=== PATIENT | female | born 1985 | race Caucasian/White ===

== ENCOUNTER 2019-07-27 05:59 | Inpatient (IN) ==
[2019-07-20 15:05] LABS: URINE SOURCE CLEAN CATCH
[2019-07-20 15:12] LABS: BILIRUBIN URINE NEGATIVE (NEGATIVE); BLOOD URINE NEGATIVE (NEGATIVE); COLOR YELLOW; GLUCOSE URINE NEGATIVE (NEGATIVE); KETONE URINE TRACE mg/dL (NEGATIVE); LEUKOCYTES URINE NEGATIVE (NEGATIVE); NITRITE URINE NEGATIVE (NEGATIVE); PROTEIN URINE TRACE mg/dL (NEGATIVE); SP GRAVITY URINE 1.033; TURBIDITY URINE CLEAR (CLEAR); UR EPITHELIAL CELLS <10 /HPF (<10); URINE BACTERIA NEGATIVE /HPF; URINE RBC <10 /HPF (<10); URINE WBC <10 /HPF (<10); UROBILINOGEN URINE 2 mg/dL (NORMAL)
[2019-07-27] MEDS ORDERED: LR 1,000 ML ONE ×2 (06:15→15:01)
[2019-07-27] MEDS ORDERED: REGLAN ONE (06:15)
[2019-07-27] MEDS ORDERED: KEFZOL 1 GM/D5W 2 GM/100 ML IVPB ONE (06:15)
[2019-07-27] MEDS ORDERED: TRANSDERM-SCOP ONE (06:15)
[2019-07-27] MEDS ORDERED: PEPCID ONE (06:15)
[2019-07-27] MEDS ORDERED: NS 250 ML ONE (06:17)
[2019-07-27] MEDS ORDERED: NS 2,000 ML ONE (06:17)
[2019-07-27] MEDS ORDERED: EXPAREL 1.3% ONE (06:18)
[2019-07-27] MEDS ORDERED: BACITRACIN ONE (06:18)
[2019-07-27] MEDS ORDERED: VERSED ONE (06:21)
[2019-07-27] MEDS ORDERED: FENTANYL ONE (06:21)
[2019-07-27] MEDS ORDERED: DIPRIVAN 1% ONE (06:21)
[2019-07-27] MEDS ORDERED: ALBUMIN 25% ONE (06:24)
[2019-07-27] MEDS ORDERED: XYLOCAINE-MPF 2% ONE (08:13)
[2019-07-27] MEDS ORDERED: DECADRON ONE (08:13)
[2019-07-27] MEDS ORDERED: LUBRIFRESH PM OPH OINTMENT ONE (08:13)
[2019-07-27] MEDS ORDERED: QUELICIN (DOSE) ONE (08:13)
[2019-07-27] MEDS ORDERED: ZOFRAN ONE (08:13)
[2019-07-27 09:16] LABS: URINE SOURCE CATH
[2019-07-27] MEDS ORDERED: EPHEDRINE ONE (09:16)
[2019-07-27 09:22] LABS: BILIRUBIN URINE NEGATIVE (NEGATIVE); BLOOD URINE NEGATIVE (NEGATIVE); COLOR STRAW; GLUCOSE URINE NEGATIVE (NEGATIVE); KETONE URINE NEGATIVE (NEGATIVE); LEUKOCYTES URINE NEGATIVE (NEGATIVE); NITRITE URINE NEGATIVE (NEGATIVE); PH URINE 5.5; PROTEIN URINE NEGATIVE (NEGATIVE); SP GRAVITY URINE 1.014; TURBIDITY URINE CLEAR (CLEAR); UROBILINOGEN URINE NORMAL (NORMAL)
[2019-07-27 09:28] LABS: UR EPITHELIAL CELLS <10 /HPF (<10); URINE BACTERIA NEGATIVE /HPF; URINE RBC <10 /HPF (<10); URINE WBC <10 /HPF (<10)
[2019-07-27] MEDS ORDERED: KEFZOL 1 GM/D5W 1 GM/50 ML IVPB ONE (09:59)
[2019-07-27] MEDS ORDERED: DILAUDID ONE (11:50)
[2019-07-27] MEDS ORDERED: OFIRMEV 1000 MG/ISOTONIC SOLN 1,000 MG/100 ML BOTTLE ONE (11:58)
[2019-07-27] MEDS ORDERED: ZEMURON ONE (11:58)
[2019-07-27] MEDS ORDERED: NEOSTIGMINE ONE (12:29)
[2019-07-27] MEDS ORDERED: ROBINUL ONE (12:29)
[2019-07-27] MEDS ORDERED: MORPHINE PCA ONE (15:01)
[2019-07-27] MEDS ORDERED: TYLENOL PO PRN (15:11)
[2019-07-27] MEDS ORDERED: NARCAN IV PRN (15:15)
[2019-07-27] MEDS ORDERED: BENADRYL IV PRN (15:15)
[2019-07-27] MEDS ORDERED: MORPHINE PCA IV PRN (15:15)
[2019-07-27] MEDS ORDERED: SODIUM CHLORIDE 0.9% INJ PRN (15:15)
[2019-07-27] MEDS ORDERED: PHENERGAN IV PRN (15:15)
[2019-07-27] MEDS ORDERED: MORPHINE ONE (15:45)
[2019-07-27] MEDS: LR 1,000 ML IV SCH ×2 (16:15→23:45)
--- NOTE | 2019-07-27 18:37 | OPERATIVE NOTE ---
PROCEDURE DATE: 07/27/2019 PROCEDURE: Bilateral breast reconstruction with submuscular tissue dormitory keeper. SURGEON: Dr. Tejeda. 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 [address] placement tissue dormitory keeper and 99639-92 placement tissue dormitory keeper on the other side. INDICATION FOR PROCEDURE: This patient is a 33-year-old white female who had a left breast cancer. She had neoadjuvant chemotherapy to shrink the cancer and now she is ready for her mastectomies to be done by Dr. Ty Muller. On the left side, she also will have a complete lymph node dissection. She was seen in the office for informed consent for me for the reconstruction on 07/20/2019 and at that point, she understood that she would have submuscular tissue expanders placed after the mastectomies. She understands this is the first stage of a planned 2-stage procedure. She understands there be a period of time where she does not have optimal breast shape and will do her permanent reconstruction in about 4 months. She understands exact size and shape cannot be guaranteed. We cannot make breasts as big as she had prior to the mastectomies. She understands risks include infection, blood loss, blood clots in legs, heart problems, lung problems, allergic reactions, or blood and serum collections in the operative sites might require drainage. She understands that these tissue expanders have magnets in them so during the time that she has the tissue expanders in place she cannot have an MRI scan. She understands exact size and shape cannot be guaranteed. She knows her skin incisions be across her chest on both breasts. She knows where her scars will be. DESCRIPTION OF PROCEDURE: The patient brought to the operating room after she was marked in outpatient surgery for the mastectomies by me in the sitting position. She went to the operating room, had general anesthesia, and then she was prepped and draped and the song were reviewed with Dr. Muller. Dr. Muller then proceeded to do his surgery and then he was done, the reconstruction started. Back in the operating room, submuscular pockets were dissected under the pectoralis major muscle on both sides the inframammary folds. The pectoralis minor muscles were split on both sides to create a complete submuscular pocket and dissection from the pectoralis minor muscles was continued to the origin of the serratus anterior fibers. Hemostasis was achieved with electrocautery. Both pockets were irrigated with bacitracin solution then drains were placed in the deep pocket and then both pockets were irrigated with Betadine. She measured well for a 600 mL dormitory keeper which has a base diameter of 15 cm. Two 2-0 Polysorb sutures were placed in the bottom quadrants through the muscle to sew the suture tabs of the expanders. They were through and through the suture tabs and then brought back up through the muscle and tied down as a mattress stitch. That held both devices in place well. Another 50 mL of fluid was added to both devices so they were filled with 150 mL. The drains under each device was secured with silk drain stitch. At that point, the muscle was closed with 3-0 Polysorb interrupted sutures. Then attention was turned to the skin flaps. She was infiltrated with Exparel in the muscles and the skin edges for postoperative pain control. Hemostasis was achieved again with electrocautery under the skin flaps and in the axillary dissection. She was irrigated with bacitracin solution. A drain was placed in the axillary dissection. Some loose fat in the axillary dissection was sewn together to compartmentalize the axilla from the skin flap as much as possible, although there was not 100% compartmentalization. Drains were placed under each of the skin flaps. She was then tacked closed with silk sutures. The skin flaps were closed with 3-0 Polysorb interrupted sutures in the fat, a running 3-0 Polysorb deep dermal suture followed by running 4-0 Biosyn subcuticular stitch. The drains were secured with silk drain stitches. The type of expanders that were used in this patient were smooth-walled 133MV implants that are 600 mL in size. The serial number for the right dormitory keeper was [id number]. The serial number for the left dormitory keeper was [id number]. She tolerated the procedure well, was transported to recovery room in good condition. cc: Jitendra Tejeda MD
[2019-07-27] MEDS: KEFZOL 1 GM/D5W 1 GM/50 ML IVPB IV SCH (18:59)
--- NOTE | 2019-07-27 19:38 | OPERATIVE NOTE ---
PROCEDURE DATE: 07/27/2019 PREOPERATIVE DIAGNOSIS: Left metastatic to the axillary lymph nodes, triple negative breast carcinoma. POSTOPERATIVE DIAGNOSIS: Left metastatic to the axillary lymph nodes, triple negative breast carcinoma. PROCEDURE PERFORMED: 1. Left modified radical mastectomy. 2. Right total mastectomy. ANESTHESIA: General. ESTIMATED BLOOD LOSS: 50 mL. SPECIMENS: 1. Right breast stitch song medial. 2. Left breast stitch song medial. 3. Left axillary contents. INDICATIONS: This is a female with a large triple-negative left lateral breast carcinoma and PET avid nodes consistent with axillary metastasis, who had a near complete clinical response to neoadjuvant therapy. OPERATIVE FINDINGS: There was no palpable breast masses. There was no significantly large tumor in the left axilla, although, some of the nodes were quite fibrotic, possibly related to treatment response. OPERATIVE NOTE: Risks, benefits and alternatives were discussed with the patient and she consented to the procedure. She was seen preoperatively and surgical sites were confirmed. She was marked by Dr. Tejeda and was taken operating room and placed in supine position. General anesthesia induced. Her arms were prepped out and was prepped with Betadine and preincisional antibiotics were administered. After time-out, I made an elliptical incision around the right breast and Dr. Tejeda's planned reconstruction lines and created subcutaneous flaps extending superiorly to the clavipectoral fascia, laterally the latissimus muscle, medially to this lateral edge of the sternum and inferiorly to the rectus. The breast was then removed including the muscle fascia, protecting muscles, and it was passed off oriented as specimen. Similarly, in the left, I made an elliptical incision around the breast creating subcutaneous flaps with the same bounds as noted on the right and continued this out laterally. We then entered the axilla, identified the latissimus muscle laterally, extending this up until we identified the tendinous portion. This was difficult given the redundancy in the size of her axilla, but we were able to identify the axillary vein and protected it. There was some large venous branches coursing inferiorly. We identified the thoracodorsal bundle and protected this and the long thoracic, protecting it. The intercostal brachial nerve was divided as it coursed right through our specimen. At this point, the specimen was removed both nerves were intact with good muscle function. There was a large feeding venous branch separate from the thoracodorsal bundle that we doubly clipped. There was no palpable nodes at level 1. As such, we do not extend our dissection at this location. Hemostasis was noted. We turned the case over to Dr. Tejeda at this point. Counts were correct for my portion operation. I spoke with the at the end the case. cc: MD Jitendra Ramon MD
[2019-07-27] MEDS: PERIDEX MT SCH (21:35)
[2019-07-28] MEDS: KEFZOL 1 GM/D5W 1 GM/50 ML IVPB IV SCH ×2 (04:03→11:31)
[2019-07-28 06:41] LABS: HEMATOCRIT 31.1 % (37.0-47.0); HEMOGLOBIN 9.6 g/dL (12.0-16.0); MCH 26.7 PG (27-31); MCHC 30.9 g/dL (33-37); MCV 86.4 FL (81-99); MPV 9.9 FL (7.4-10.4); RBC 3.6 XMIL (4.2-5.4); RDW 16.2 % (11.5-14.5); WBC 9.87 X1000 (4.8-10.8)
[2019-07-28] MEDS: LR 1,000 ML IV SCH (06:46)
[2019-07-28] MEDS ORDERED: LOVENOX SUBQ ONE (07:52)
[2019-07-28 08:20] VITALS: BP 132/66
[2019-07-28] MEDS: PERIDEX MT SCH (08:49)
[2019-07-28] MEDS: PERCOCET-10 PO PRN ×2 (08:49→13:12)
--- NOTE | 2019-07-28 13:15 | DISCHARGE SUMMARY ---
ADMISSION DATE: 07/27/2019 DISCHARGE DATE: 07/28/2019 ADMISSION DIAGNOSIS: Left breast cancer. DISCHARGE DIAGNOSIS: Left breast cancer. HOSPITAL COURSE: The patient was admitted to the hospital via Outpatient Surgery, where preoperative song were made for bilateral mastectomies to be performed by DR. Muller, and a left axillary node dissection. That part of the operation went fine. When he was finished, she had a reconstruction done with bilateral submuscular tissue expanders. That went fine too. She has [address], 2 in each breast and 1 in the left axilla. She knows how to take care of those. She has done well in the hospital. She has not had any problems. Pain control is good. She has no nausea. She is eating and voiding. Her hemoglobin and hematocrit from this morning were 9.6 and 31.1. She is already on iron and vitamins at home. She will be discharged with her incentive spirometer and her drain output. She had a dose of Lovenox this morning for DVT prophylaxis. I will meet her in the office on Friday morning for a dressing change. cc: MD Jitendra Ramon MD
--- NOTE | 2019-07-28 15:37 | GENERAL SURGERY PROGRESS NOTE ---
DATE: 07/28/2019 SUBJECTIVE: Doing well. She says she is not really having anything in the way of pain. Hemodynamically, she has been stable. Drains were thin, serosanguineous. Dressings are intact. Hematocrit was 31. ASSESSMENT/PLAN: 33-year-old female status post left modified radical mastectomy, right total mastectomy with reconstruction and tissue piano mechanic apprentice placement by Dr. Tejeda. She is doing well. He is discharging her as we speak. I can see her in a week, which is scheduled to discuss her pathology. Otherwise, we will defer drain care to Dr. Tejeda. cc: MD Jitendra Ramon MD
== END 2019-07-28 13:18 | disposition home or self-care (01) | DRG 582 ==
LOC: SURHOLD 05:59 → 4N 07:11 → EDSTATUS 07:30
PROVIDERS: ADMIT Surgery Plastic and Reconstructive Surgery; ATTEND Surgery Plastic and Reconstructive Surgery